=== PATIENT | male | born 1970 | race Caucasian/White ===

== ENCOUNTER 2021-11-21 00:35 | Observation (INO) | payer OTHER, SELFPAY ==
[2021-11-21] VITALS (51 sets, daily range): BP systolic 102–172; BP diastolic 63–125; PULSE 84–114; RESP 11–33; TEMP 36.2–36.6; O2SAT 88–100; BMI 30.6
--- NOTE | ~2021-11-21 | CT_ITS ---
EXAMINATION: CT brain wo con DATE: 11/21/2021 05:06 INDICATION: Altered mental while on drugs with confusion and involuntary movements of the body. TECHNIQUE: Computed tomography (CT) of the head was performed without intravenous contrast. Sagittal and coronal reconstructions were performed. The mA was adjusted according to patient size. Iterative reconstruction technique was employed. The dose-length product was 1362.00 mGy-cm. COMPARISON: None FINDINGS: Evaluation mildly limited by some motion artifact on both initial and repeat images. No acute intracr anial hemorrhage, acute infarction or abnormal extra axial fluid collection. Ventricles are normal an d symmetric. No mass/mass effect. Mild mucosal thickening in the right maxillary and ethmoid sinuses. Right-sided turbinectomies. The orbits and mastoid air cells are normal. IMPRESSION: 1. Normal brain. No acute intracranial process. Reviewed, dictated and finalized at location A.
--- NOTE | ~2021-11-21 | XR_ITS ---
EXAMINATION: XR chest 1V portable DATE: 11/21/2021 02:05 INDICATION: Dyspnea TECHNIQUE: frontal view of the chest was obtained. COMPARISON: Chest radiograph dated 08/22/2012 FINDINGS: Elevation the right hemidiaphragm with increasing volume loss in the right hemithorax. No focal airsp elly opacities, pulmonary edema, pleural effusion or pneumothorax. The cardiomediastinal silhouette is within normal limits for AP technique. Colonic interposition with gas-filled colon projecting over t he elevated right hemidiaphragm. IMPRESSION: 1. Chronic elevation of the right hemidiaphragm with worsening volume loss in the right hemithorax. Reviewed, dictated and finalized at location A. IMPRESSION: 1. Chronic elevation of the right hemidiaphragm with worsening volume loss in t he right hemithorax.
--- NOTE | 2021-11-21 00:38 | ECG_ITS ---
Measurements Intervals [place] Rate: 112 P: 78 SC: 148 QRS: -13 QRSD: 112 T: 52 QT: 338 QTc: 462 Interpretive Statements SINUS TACHYCARDIA WITH OCCASIONAL VENTRICULAR PREMATURE COMPLEXES POSSIBLE LATERAL MYOCARDIAL INFARCTION , OF INDETERMINATE AGE [30 ms Q WAVE IN I/aVL/V5/V6] ABNORMAL ECG NO PREVIOUS ECG AVAILABLE FOR COMPARISON Electronically Signed On 11-21-2021 8:42:15 CDT by Ja Goldstein M.D.
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
[2021-11-21] MEDS: LORazepam INJ (*CRX) 2 MG/ML VIAL IV PUSH (00:47)
[2021-11-21] MEDS: ASPIRIN 81 MG CHEWABLE TABLET 324 MG PO (00:50)
[2021-11-21] MEDS: SODIUM CHLORIDE 0.9% IV 2,000 ML 999 ML IV CONT (00:52)
[2021-11-21] MEDS: LORazepam INJ (*CRX) 2 MG/ML VIAL 1 MG IV PUSH (01:21)
[2021-11-21 01:30] LABS: Basophils Absolute Auto 0.04 K/mm3 (0.00-0.10); Basophils Percent Auto 0.3 % (0.0-1.0); Hematocrit 40.4 % (40.0-54.0); Hemoglobin 13.7 g/dL (14.0-18.0); Immature Granulocyte Absolute 0.14 K/mm3 (0.00-0.00); Immature Granulocyte Percent A 1.1 % (0.0-0.0); Lymphocytes Absolute Auto 1.16 K/mm3 (1.10-4.50); Lymphocytes Percent Auto 9.4 % (18.0-42.0); Mean Corpuscular HGB Conc 33.9 g/dL (32.0-36.0); Mean Corpuscular Hemoglobin 29.7 pg (27.0-31.0); Mean Corpuscular Volume 87.6 fL (78.0-102.0); Mean Platelet Volume 12.5 fl (8.7-11.0); Monocytes Absolute Auto 0.68 K/mm3 (0.10-0.90); Monocytes Percent Auto 5.5 % (2.0-11.0); Neutrophils Absolute Auto 10.3 K/mm3 (1.7-7.2); Neutrophils Percent Auto 83.7 % (50.0-70.0); Platelet Count Result 241 K/mm3 (150-420); Red Blood Count 4.61 M/mm3 (4.70-6.10); Red Cell Distribution Width 12.8 % (11.6-14.4); White Blood Count 12.3 K/mm3 (4.8-10.8)
[2021-11-21 01:37] LABS: Alanine Aminotransferase 21 U/L (16-63); Albumin Level 3.1 g/dL (3.4-5.0); Alkaline Phosphatase 94 U/L (46-116); Anion Gap 16 mmol/L (8-16); Aspartate Amino Transferase 33 U/L (15-37); Bilirubin,Total 1.2 mg/dL (0.00-1.00); Blood Urea Nitrogen 31 mg/dL (7-18); Calcium 8.8 mg/dL (8.5-10.1); Carbon Dioxide 19 mmol/L (21-32); Chloride 102 mmol/L (98-108); Estimated CRCL calculation 55 ml/min; Estimated Glomerular Filt Rate 33; Glucose 107 mg/dL (70-99); Osmolality Calculated 290 mOsm/kg (285-295); Sodium 137 mmol/L (136-145); Total Protein 7.2 g/dL (6.4-8.2); Troponin I 28.4 ng/L (0.00-60.4)
[2021-11-21 01:44] LABS: INR 1.2; Partial Thromboplastin Time 26.5 SEC (23.90-30.70); Prothrombin Time 12.8 Seconds (9.50-12.10)
[2021-11-21] MEDS: KCL 20 MEQ/SW 100 ML 100 ML 50 MEQ IVPB (02:37)
[2021-11-21] MEDS: POTASSIUM CHLORIDE 20 MEQ TABLET 40 MEQ PO (02:37)
[2021-11-21] MEDS: MAGNESIUM SULF 2 GM/WATER 50ML 2 GM/50 ML BAG IVPB (02:43)
[2021-11-21 03:21] LABS: Amphetamine Screen Urine Positive (Negative); Barbiturate Screen Urine Negative (Negative); Benzodiazepines Screen Urine Positive (Negative); Cannabinoid Screen Urine Negative (Negative); Cocaine Screen Urine Positive (Negative); Methadone Screen Urine Negative (Negative); Opiate Screen Urine Negative (Negative); Phencyclidine Screen Urine Negative (Negative)
--- NOTE | 2021-11-21 04:00 | PC.NURSE ---
Pt is extremely restless and unable to be redirected very well. VSS but stating he needs to urinated and has bizarre behavior, pt is speaking unclear sentences and unable to answer questions appropriately, he thinks it is 1962. Pt is alert x1 to self only at this time. Wang cath inserted for pts c/o inability to urinate. and urine specimen obtained.
[2021-11-21] MEDS: HALOPERIDOL LACTATE 5 MG/ML VIAL IM (04:28)
[2021-11-21 04:29] LABS: Ethanol < 3 mg/dL (0-6)
[2021-11-21 04:39] LABS: Troponin I 30.8 ng/L (0.00-60.4)
--- NOTE | 2021-11-21 04:40 | PC.NURSE ---
Pt restless in bed, ERP ordered Head CT before pt will be admitted. Haldol 5 mg IM given for pts restlessness, awaiting med to work before taken to CT.
--- NOTE | 2021-11-21 05:00 | PC.NURSE ---
Pt back from CT, resting and able to be redirected, is cooperative c care and will try to follow commands. VSS. Awaiting CT results.
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
--- NOTE | 2021-11-21 06:37 | PC.NURSE ---
Pt awake for ERP to re-evaluate, pt now alert x1 and talking nonsensical speech again and thinks he is at his nephews house, pt is unsure where he is and when asked states i'm in the [place] . VSS, awaiting head CT for clearance and per ERP Dr Abrahan COE is to admit for obs.
--- NOTE | 2021-11-21 06:39 | PC.NURSE ---
Call placed to Floor and spoke to JONNY Burton, bed assignment to Rm [id number] for obs.
--- NOTE | 2021-11-21 07:05 | PC.NURSE ---
Patient admitted to unit from ER via stretcher, accompanied by ER staff. Patient able to transfer from stretcher to bed by pivot with standby assist. Patient orientated to room and call light, and voiced understanding. During admission assessment, patient revealed that he took an overdose of medication intentionally 5 years ago. This was reported to MECHANICAL SYSTEMS DESIGNER immediately. Patient denies any suicidal ideations at this time, and no additional precautions are warranted at this time. Patient is located near nurse's station for close observation.
[2021-11-21 07:36] LABS: Hematocrit 37.7 % (40.0-54.0); Hemoglobin 12.7 g/dL (14.0-18.0); Mean Corpuscular HGB Conc 33.7 g/dL (32.0-36.0); Mean Corpuscular Hemoglobin 30.1 pg (27.0-31.0); Mean Corpuscular Volume 89.3 fL (78.0-102.0); Mean Platelet Volume 11.5 fl (8.7-11.0); Platelet Count Result 181 K/mm3 (150-420); Red Blood Count 4.22 M/mm3 (4.70-6.10); Red Cell Distribution Width 13.1 % (11.6-14.4); White Blood Count 10.2 K/mm3 (4.8-10.8)
[2021-11-21 07:57] LABS: Alanine Aminotransferase 15 U/L (16-63); Albumin Level 2.8 g/dL (3.4-5.0); Alkaline Phosphatase 87 U/L (46-116); Anion Gap 11 mmol/L (8-16); Aspartate Amino Transferase 32 U/L (15-37); Blood Urea Nitrogen 27 mg/dL (7-18); Calcium 8.1 mg/dL (8.5-10.1); Carbon Dioxide 23 mmol/L (21-32); Chloride 103 mmol/L (98-108); Estimated CRCL calculation 70 ml/min; Estimated Glomerular Filt Rate 52; Glucose 93 mg/dL (70-99); Magnesium 1.8 mg/dL (1.8-2.4); Osmolality Calculated 289 mOsm/kg (285-295); Potassium 3.4 mmol/L (3.5-5.1); Sodium 137 mmol/L (136-145); Total Protein 6.2 g/dL (6.4-8.2)
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
--- NOTE | 2021-11-21 15:46 | PC.NURSE ---
Discontinued IV in both AC in preparation for discharge.
--- NOTE | 2021-11-21 17:10 | PC.NURSE ---
Patient discharged from unit in w/c accompanied to lobby by database report writer. Patient left facility in privately owned vehicle. Discharge instructions given to patient. Patient voiced understanding. Personal belongings sent home with patient. Information provided to patient r/t assistance with drug addiction. Papers r/t drug addiction left behind by patient.
--- NOTE | 2021-11-27 11:09 | PC.NURSE ---
Unable to contact for discharge call back.
== END 2021-11-21 17:10 | disposition home or self-care (01) ==
LOC: CHSED 06:47 → CHS2ND 06:49
PROVIDERS: Nurse Practitioner; Admitting Provider Internal Medicine; Emergency Provider Emergency Medicine; PCP Pediatrics; Visit Provider Internal Medicine
DX: F15.10 Other stimulant abuse, uncomplicated (principal); F14.90 Cocaine use, unspecified, uncomplicated; G93.40 Encephalopathy, unspecified; N17.9 Acute kidney failure, unspecified; E87.8 Other disorders of electrolyte and fluid balance, not elsewhere classified; I10 Essential (primary) hypertension
CPT/HCPCS: 36415; 70450; 71045; 80053; 80307; 83735; 84484; 85025; 85027; 85610; 85730; 93005; 96361; 96365; 96366; 96368; 96372; 96375; 96376; 99285; A9270; G0378; G0379; J1630; J2060; J3475; J3480; J7030

== ENCOUNTER 2023-03-11 13:11 | Emergency (ER) | payer OTHER, SELFPAY ==
--- NOTE | ~2023-03-11 | XR_ITS ---
Clinical Indication: Cough PA and lateral views of the chest: Comparison: 11/21/2021 Findings: There is left basilar airspace consolidation. Right lung clear. Stable elevation right rip diaphragm noted. Cardiomediastinal silhouette is within normal limits. Bones and soft tissues are unr emarkable. Impression: Left basilar atelectasis versus pneumonia. Correlate clinically. Elevated right hemidiaphragm. Reviewed, dictated and finalized at [facility]. [employer] MEDICAL TRANSCRIPTIONIST Impression: Left basilar atelectasis versus pneumonia. Correlate clinically. Elevated right hemidiaphragm.
[2023-03-11 13:18] VITALS: BP 144/91; PULSE 71; RESP 20; TEMP 36.6; O2SAT 96
--- NOTE | 2023-03-11 13:51 | ED.URI ---
HPI - URI/Sore Throat General Chief Complaint: Upper Respiratory Infection Stated Complaint: cough and it hurts back/sob Time Seen by Provider: 03/11/23 13:51 Source: patient, RN notes reviewed and old records reviewed Mode of arrival: ambulatory Limitations: no limitations History of Present Illness HPI Narrative: 53-year-old male presents to [facility] complaints productive cough, sinus congestion, sinus pressure for 2-1/2 weeks. Patient denies chest pain, weakness, dizziness, shortness of breath, nausea/vomiting. Patient taking mmmt-[id number]-dckoxle medications with no relief. MD elicited complaint: cough, nasal congestion and sinus pain Related Data Home Medications Medication Instructions Recorded Confirmed allopurinol 100 mg tablet 100 mg PO DAILY 11/21/21 11/21/21 alprazolam 1 mg tablet 1 mg PO DAILY 11/21/21 11/21/21 carvedilol 25 mg tablet 25 mg PO DAILY 11/21/21 11/21/21 cyclobenzaprine 10 mg tablet 10 mg PO PRN 11/21/21 11/21/21 ferrous sulfate 325 mg (65 mg 325 mg PO DAILY 11/21/21 11/21/21 iron) tablet (FeroSul) hydrocodone 10 mg-acetaminophen 1 tablet PO PRN PRN Pain 11/21/21 11/21/21 325 mg tablet ibuprofen 800 mg tablet 800 mg PO PRN PRN Pain 11/21/21 11/21/21 minocycline 50 mg capsule 50 mg PO DAILY 11/21/21 11/21/21 omeprazole 40 mg capsule,delayed 40 mg PO DAILY 11/21/21 11/21/21 release prednisone 10 mg tablet 10 mg PO DAILY 11/21/21 11/21/21 venlafaxine 37.5 mg tablet 37.5 mg PO DAILY 11/21/21 11/21/21 Allergies Allergy/AdvReac Type Severity Reaction Status Date / Time amitriptyline AdvReac Seizure Verified 11/21/21 09:24 Review of Systems Constitutional: Constitutional: Reports as per HPI, Reports body ache(s) and Reports headache(s) Eyes: Eyes: Reports no additional eye complaints ENT: Reports as per HPI, Reports nasal congestion and Reports sinus pressure Cardiovascular: Cardiovascular: Reports no additional cardiovascular complaints Respiratory: Respiratory: Reports as per HPI, Reports change in phlegm color ( Green phlegm), Reports chest congestion, Reports cough and Reports pain with cough Neurologic: Reports system reviewed and no additional complaints, except as documented PMFSH Past Medical History Medical History Essential (primary) hypertension Substance use disorder Family History Family History Mother Family history of coronary artery disease Hypertension Asthma Father Family history of coronary artery disease Family history of diabetes mellitus in first degree relative Family history of malignant neoplasm of brain Social History Social History Smoking status: Never smoker Second hand tobacco smoke exposure: No Alcohol intake: current Drinks per week: 8 Substance use: current Substance use type: crack/cocaine, opiates, methamphetamine and prescription drug Last use: last night Spiritual care concerns: No Comments At the time of my signature, I reviewed and agree with the nursing past medical, surgical, social, and family history. There is no relevant family history pertinent to the patient complaint. Exam Const: General: cooperative, healthy appearing, no acute distress and well nourished Nutritional Appearance: well nourished Orientation/consciousness: patient oriented x3 Limitations: no limitations HENMT: Head: normal to inspection and normocephalic Ears: external ears normal, TM's normal bilaterally, mastoids normal and Abnormal EAC present Face/Nose/Sinus: normal facial exam Face and sinus: normal facial exam Mouth: Yes Normal oral and palatal mucosa present, Yes oropharynx normal and Yes moist mucous membranes Throat: posterior oropharynx normal, tonsils normal, uvula midline and no uvular edema Eyes: General: appearance normal, both eyes and all related structures Scl
== END 2023-03-11 14:15 | disposition home or self-care (01) ==
PROVIDERS: Emergency Provider Registered Nurse; PCP Family Medicine
DX: J18.9 Pneumonia, unspecified organism (principal); I10 Essential (primary) hypertension
CPT/HCPCS: 71046; 99213; G0463

== ENCOUNTER 2023-06-08 18:14 | Emergency (ER) | payer MEDICAID, SELFPAY ==
[2023-06-08 18:21] VITALS: BP 155/101; PULSE 89; RESP 16; TEMP 36.2; O2SAT 99
[2023-06-08 18:30] VITALS: BP 166/116
--- NOTE | 2023-06-08 19:16 | ED.EAR ---
HPI - Ear Problem General Chief complaint: Ear Stated complaint: Left Ear Bleeding Source: patient Mode of arrival: ambulatory Limitations: no limitations History of Present Illness HPI Narrative: Patient presents for evaluation of bleeding from the left ear canal. He indicates he felt an insect land on the external portion of his left ear just prior to arrival. He squeezed the bug and noted bleeding from his ear thereafter. He did not feel as though the insect actually went into the ear canal. He is unable to tell what type of insect it was as he crushed it immediately with his fingers. On arrival here, he feels that there is fluid in the ear canal. Denies hearing loss or tinnitus. He is not on blood thinners. Related Data Home Medications Medication Instructions Recorded Confirmed alprazolam 1 mg tablet 1 mg PO BID 11/21/21 06/08/23 carvedilol 25 mg tablet 25 mg PO BID 11/21/21 06/08/23 ferrous sulfate 325 mg (65 mg 325 mg PO DAILY 11/21/21 06/08/23 iron) tablet (FeroSul) hydrocodone 10 mg-acetaminophen 1 tablet PO PRN PRN Pain 11/21/21 06/08/23 325 mg tablet ibuprofen 800 mg tablet 800 mg PO PRN PRN Pain 11/21/21 06/08/23 minocycline 50 mg capsule 50 mg PO DAILY 11/21/21 06/08/23 omeprazole 40 mg capsule,delayed 40 mg PO DAILY 11/21/21 06/08/23 release venlafaxine 37.5 mg tablet 37.5 mg PO BID 11/21/21 06/08/23 albuterol sulfate 90 mcg/actuation 2 puff inhalation Q4-6H PRN 06/08/23 06/08/23 aerosol inhaler Shortness Of Breath Or Wheezing atorvastatin 40 mg tablet 40 mg PO DAILY 06/08/23 06/08/23 lisinopril 20 mg tablet 20 mg PO DAILY 06/08/23 06/08/23 quetiapine 25 mg tablet 25 mg PO DAILY 06/08/23 06/08/23 Allergies Allergy/AdvReac Type Severity Reaction Status Date / Time amitriptyline AdvReac Severe Seizure Verified 06/08/23 18:41 Review of Systems Review of Systems: CONSTITUTIONAL: Denies fever, chills, or sweats. EYES: Denies visual changes, redness, or discharge. ENT: Reports bleeding from the left ear with sensation of fluid in the ear canal. CARDIOVASCULAR: Denies chest pain, palpitations, or edema. RESPIRATORY: Denies cough or dyspnea. GASTROINTESTINAL: Denies abdominal pain, nausea, vomiting, or diarrhea. GENITOURINARY: Denies dysuria or hematuria. SKIN: Denies rash or itching. MUSCULOSKELETAL: Denies back pain, joint pain, or myalgia. NEUROLOGIC: Denies headache, numbness, dizziness, or weakness. PSYCHIATRIC: Denies anxiety or depression. [facility] Past Medical History Medical History Essential (primary) hypertension Hyperlipidemia Substance use disorder Surgical History Surgical History History of bariatric surgery Family History Family History Mother Family history of coronary artery disease Hypertension Asthma Father Family history of coronary artery disease Family history of diabetes mellitus in first degree relative Family history of malignant neoplasm of brain Social History Social History Smoking status: Never smoker Second hand tobacco smoke exposure: No Alcohol intake: current Drinks per week: 8 Substance use: current Substance use type: crack/cocaine, opiates, methamphetamine and prescription drug Last use: last night Spiritual care concerns: No Exam Narrative: GENERAL: Well-appearing, well-nourished, and in no acute distress. HEAD: Normocephalic, atraumatic. EYES: PERRLA and EOMI. ENT: Nares clear, no rhinorrhea or epistaxis. Mucous membranes moist. Oropharynx without tonsillar hypertrophy exudate or other lesions. Right TM is pearly luevano. Bony landmarks are visible. Unable to visualize left TM 2/2 blood clot in left ear canal with active sanguinous oozing. CHEST: Clear to auscultation. No respiratory di
== END 2023-06-08 19:48 | disposition home or self-care (01) ==
PROVIDERS: Emergency Provider Nurse Practitioner; PCP Family Medicine
DX: S00.412A Abrasion of left ear, initial encounter (principal); X58.XXXA Exposure to other specified factors, initial encounter; I10 Essential (primary) hypertension; E78.5 Hyperlipidemia, unspecified; F14.90 Cocaine use, unspecified, uncomplicated; F11.90 Opioid use, unspecified, uncomplicated; F15.90 Other stimulant use, unspecified, uncomplicated
CPT/HCPCS: 99213; A9270; G0463